=== PATIENT | male | born 1970 | race Caucasian/White ===

== ENCOUNTER 2023-02-22 10:48 | Emergency (ER) | payer MEDICARE, MEDICAID, SELFPAY ==
[2023-02-22] VITALS (7 sets, daily range): BP systolic 121–153; BP diastolic 70–94; PULSE 75–91; RESP 13–20; TEMP 36.5; O2SAT 87–100
--- NOTE | ~2023-02-22 | CT_ITS ---
EXAMINATION: CTA chest PE protocol DATE: 02/22/2023 17:44 INDICATION: sob, elevated d dimer TECHNIQUE: Computed tomography angiography (CTA) of the chest was performed with 100 mL Omnipaque-350 intravenous contrast timed to evaluate the pulmonary arteries. Coronal maximum intensity projection 3D-reconstructions were created by the technologist. The dose-length product (DLP) was 809.05 mGy-cm. Automated exposure control and iterative reconstruction technique were employed. COMPARISON: X-ray chest, same date. FINDINGS: Lung parenchyma and airways: Clear. Pleura: Unremarkable. Thoracic inlet, axillae and chest wall: Minimal bilateral gynecomastia. Thoracic aorta: Normal. Mediastinum: Normal. Heart and pericardium: Normal. Coronary artery calcifications: Absent. Upper abdomen: Cholelithiasis. Bones: No acute osseous finding. Pulmonary arteries: Study quality: Adequate. No pulmonary emboli detected. IMPRESSION: No CT evidence of acute pulmonary embolus. No acute intrathoracic process detected. Cholelithiasis, w ithout evidence of cholecystitis. Reviewed, dictated and finalized at location K. IMPRESSION: No CT evidence of acute pulmonary embolus. No acute intrathoracic process detec jes. Cholelithiasis, without evidence of cholecystitis.
--- NOTE | ~2023-02-22 | XR_ITS ---
EXAMINATION: XR chest 2V DATE: 02/22/2023 11:12 INDICATION: Shortness of breath TECHNIQUE: PA and lateral views of the chest are obtained. COMPARISON: None available FINDINGS: The lungs are free of acute opacities. No pleural effusion or pneumothorax. The cardiomedia stinal silhouette is normal. There is moderate thoracic spondylosis. IMPRESSION: 1. No acute cardiopulmonary abnormality. Reviewed, dictated and finalized at location L.
--- NOTE | 2023-02-22 10:54 | ECG_ITS ---
Measurements Intervals Arnold Rate: 89 P: 25 KS: 185 QRS: -42 QRSD: 94 T: 7 QT: 341 QTc: 417 Interpretive Statements SINUS RHYTHM MARKED LEFT AXIS DEVIATION [QRS AXIS < -30] NO PREVIOUS ECG AVAILABLE FOR COMPARISON Electronically Signed On 02-22-2023 16:06:55 CDT by Keyur Saldana M.D.
[2023-02-22 13:32] LABS: Basophils Absolute Auto 0.1 K/mm3 (0.0-0.1); Basophils Percent Auto 1.4 % (0.2-1.2); Eosinophils Absolute Auto 0.1 K/mm3 (0-0.3); Eosinophils Percent Auto 1.3 % (0-4.4); Hematocrit 41.6 % (42.0-52.0); Hemoglobin 13.8 g/dL (14.0-18.0); Immature Granulocyte Absolute 0.03 K/mm3 (0.00-0.031); Immature Granulocyte Percent A 0.4 % (0-0.5); Lymphocytes Absolute Auto 1.72 K/mm3 (0.9-3.2); Lymphocytes Percent Auto 20.5 % (18.3-44.2); Mean Corpuscular HGB Conc 33.2 g/dl (32-36); Mean Corpuscular Hemoglobin 29.9 pg (26-34); Mean Corpuscular Volume 90.2 fl (80-100); Mean Platelet Volume 9.9 fl (7.4-10.4); Monocytes Absolute Auto 0.7 K/mm3 (0.1-0.6); Monocytes Percent Auto 7.9 % (2.6-8.5); Neutrophils Absolute Auto 5.7 K/mm3 (1.3-6.7); Neutrophils Percent Auto 68.5 % (45.5-73.1); Platelet Count Result 256 k/mm3 (150-375); Red Blood Count 4.61 M/mm3 (4.6-6.20); Red Cell Distribution Width 12.5 % (11.5-14.5); White Blood Count 8.4 K/mm3 (4.5-10.0)
[2023-02-22 13:51] LABS: Alanine Aminotransferase 35 U/L (6-50); Albumin Level 4.6 g/dL (3.5-5.1); Alkaline Phosphatase 116 U/L (38-126); Anion Gap 9 mmol/L (8-16); Aspartate Amino Transferase 32 U/L (17-59); Bilirubin,Total 0.4 mg/dL (0.2-1.3); Blood Urea Nitrogen 7 mg/dL (9-20); Calcium 8.8 mg/dL (8.4-10.2); Carbon Dioxide 27 mmol/L (22-30); Chloride 98 mmol/L (98-107); Estimated CRCL calculation 139 ml/min; Estimated Glomerular Filt Rate > 60; Glucose 103 mg/dL (65-110); Potassium 4.5 mmol/L (3.4-5.0); Sodium 134 mmol/L (137-145)
--- NOTE | 2023-02-22 14:41 | ED.SOB ---
HPI - SOB/Dyspnea General Chief Complaint: Shortness of Breath/Dyspnea Stated Complaint: shortness of breath Time Seen by Provider: 02/22/23 14:28 Source: patient and RN notes reviewed Mode of arrival: ambulatory Limitations: no limitations History of Present Illness HPI Narrative: This is a 52 year old male with history of hypertension and schizoaffective who presents for evaluation of shortness of breath. PAtient states he has been having shortness of breath for 3 months. He is short of breath with exertion. He states he does ok with walking around his home but he has shortness of breath with walking up hills or steps. He denies leg swelling, chest pain, cough or fever. He has been evaluated twice in December for his shortness of breath at [place]. He states he had labs, engine monitor, and he was observed. He has not followed up with PCP. He reports having abnormal rhythm and he takes metoprolol. He denies coronary disease, MT or stent. Related Data Home Medications Medication Instructions Recorded Confirmed benztropine 0.5 mg tablet mg 02/22/23 02/22/23 escitalopram oxalate 10 mg tablet mg 02/22/23 fluticasone propionate 44 inhalation 02/22/23 mcg/actuation HFA aerosol inhaler (Flovent HFA) fluticasone propionate 44 inhalation 02/22/23 mcg/actuation HFA aerosol inhaler (Flovent HFA) fluticasone propionate 50 intranasal 02/22/23 mcg/actuation nasal spray,suspension metoprolol tartrate 25 mg tablet mg 02/22/23 montelukast 10 mg tablet mg 02/22/23 omeprazole 20 mg capsule,delayed mg 02/22/23 release paliperidone palmitate 156 mg/mL mg IM 02/22/23 intramuscular syringe (Invega Sustenna) risperidone 2 mg tablet mg 02/22/23 Allergies Allergy/AdvReac Type Severity Reaction Status Date / Time Penicillins Allergy Unknown Verified 02/22/23 17:27 Review of Systems Constitutional: Constitutional: Denies weakness Cardiovascular: Cardiovascular: Denies syncope, Denies rapid heart rate, Denies irregular heart rhythm, Denies leg edema and Denies dyspnea Respiratory: Respiratory: Denies chest congestion, Denies hemoptysis, Denies excessive phlegm production and Reports dyspnea Gastrointestinal: Gastrointestinal: Denies abdominal pain, Denies hematochezia, Denies diarrhea and Denies vomiting Genitourinary: Genitourinary: Denies hematuria, Denies dysuria, Denies penile discharge and Denies testicular pain Musculoskeletal: Musculoskeletal: Denies joint swelling, Denies loss of height and Denies muscle weakness Neurologic: Denies syncope, Denies focal weakness and Denies weakness PMFSH Past Medical History Medical History (Updated 02/22/23 @ 18:04 by Jennifer Malagon MD) Hypertension Schizoaffective disorder Social History Social History (Updated 02/22/23 @ 14:54 by Jennifer Malagon MD) Smoking status: Never smoker Alcohol intake: former Substance use: never Exam Const: General: alert Nutritional Appearance: well nourished Orientation/consciousness: patient oriented x3 Limitations: no limitations HENMT: Head: normal to inspection Eyes: Pupils: Equal, round and reactive pupils present EOM: EOMs intact bilaterally Neck: Neck: normal visual inspection Resp: Effort & Inspection: normal respiratory effort Auscultation: clear to auscultation bilaterally Cardio: Rate: regular rate Rhythm: regular rhythm Heart sounds: no murmurs GI: GI Palp: Yes Soft to palpation, No Tenderness to palpation present (GI), No Guarding due to palpation present (GI) and No Rigid due to palpation Auscultation: normal bowel sounds Back/Spine/Pelvis: Back: no CVA tenderness Skin: General skin exam: normal color Rashes: no rashes Wounds: no wounds Neuro: General: patient oriented x3, moves all extremities and CN's II-XI intact bilaterally Psych: Mental Status: mental status grossly normal Affect: normal affect Attitude: cooperative Course Reevaluation(s) Reevaluation
--- NOTE | 2023-02-22 15:47 | PC.NURSE ---
PT STATES HE LIVES AT [facility] IN [place] AND THAT HE DECIDED TO COME DOWN TO [facility] FOR EVAL OF HIS SHORTNESS OF BREATH WHICH HE SAYS HAS BEEN HAPPENING FOR MONTHS. I CALLED [facility] AT [phone] AND THE CAREGIVER THERE WAS UNAWARE THAT HE HAD LEFT THE FACILITY AND WAS VERY SURPRISED THAT HE TOOK THE BUS ALL THE WAY HERE SUCCESSFULLY. FACILITY WILL BE CALLING BACK AROUND 1700 FOR AN UPDATE.
[2023-02-22 16:11] LABS: NT Pro B Type Natriuretic Pept 40 pg/mL (19.9-100); Troponin I < 0.012 ng/mL (0.000-0.034)
[2023-02-22 16:18] LABS: INR 1.2; Prothrombin Time 14.3 Seconds (11.1-14.7)
[2023-02-22 16:19] LABS: Partial Thromboplastin Time 26.3 SECONDS (22.3-36.8)
[2023-02-22 16:24] LABS: D Dimer 1.16 ug/mL (<0.48)
== END 2023-02-22 18:50 | disposition home or self-care (01) ==
PROVIDERS: Emergency Provider General Practice
DX: R06.09 Other forms of dyspnea (principal); I10 Essential (primary) hypertension; F25.9 Schizoaffective disorder, unspecified; Z79.51 Long term (current) use of inhaled steroids
CPT/HCPCS: 36415; 71046; 71275; 80053; 83880; 84484; 85025; 85380; 85610; 85730; 93005; 99284; Q9967